=== PATIENT | female | born 1975 | race Caucasian/White ===

== ENCOUNTER 2017-05-18 11:35 | Day surgery (SDC) | payer OTHER ==
[2017-05-18] MEDS ORDERED: CEFAZOLIN 2 GM/50 ML (PMX) 50 ML IVPB ×2 (13:00)
[2017-05-18] MEDS ORDERED: SOD CHLORIDE 0.9% 1,000 ML IV ×2 (13:00)
[2017-05-18 13:01] LABS: ADD MAN DIFF? NO
[2017-05-18 13:04] LABS: WHITE BLOOD COUNT 6.8 10^3/ul (4.8-10.8)
[2017-05-18 13:04] LABS: BASOPHILS % 0.4 % (0.0-2.0); EOSINOPHILS # 0.1 10^3/ul (0.0-0.5); HEMATOCRIT 39.2 % (37.0-47.0); HEMOGLOBIN 13.4 g/dl (12.0-16.0); LYMPHOCYTES # 2.1 10^3/ul (0.8-2.9); LYMPHOCYTES % 30.4 % (15.0-51.0); MEAN CORPUSCULAR HEMOGLOBIN 31.2 pg (29.0-33.0); MEAN CORPUSCULAR HGB CONC 34.2 g/dl (32.0-37.0); MEAN CORPUSCULAR VOLUME 91.2 fl (82.0-101.0); MEAN PLATELET VOLUME 9.6 fl (7.4-10.4); MONOCYTE # 0.4 10^3/ul (0.3-0.9); MONOCYTES % 5.1 % (0.0-11.0); NEUTROPHIL # 4.3 10^3/ul (1.6-7.5); PLATELET COUNT 276 10^3/UL (140-415); RED CELL DISTRIBUTION WIDTH 12.1 % (11.5-14.5)
[2017-05-18 13:21] LABS: ALANINE AMINOTRANSFERASE 28 IU/L (13-69); ALBUMIN 4.4 g/dl (3.3-4.9); ALBUMIN/GLOBULIN RATIO 1.33; ALKALINE PHOSPHATASE 53 IU/L (42-121); ANION GAP 11 (8-16); ASPARTATE AMINO TRANSFERASE 16 IU/L (15-46); BILIRUBIN,INDIRECT 0.5 mg/dl (0-1.1); BILIRUBIN,TOTAL 0.5 mg/dl (0.2-1.3); CARBON DIOXIDE 28 mmol/L (21-31); CHLORIDE 107 mmol/L (97-110); GLUCOSE 97 mg/dl (70-220); TOTAL PROTEIN 7.7 g/dl (6.1-8.1)
[2017-05-18 13:23] LABS: INR 1.01; PROTIME 13.4 Sec (11.9-14.9)
[2017-05-18 13:26] LABS: BLOOD UREA NITROGEN 17 mg/dl (7-20); CALCIUM 9.7 mg/dl (8.4-10.2); CREATININE 0.69 mg/dl (0.44-1.00); POTASSIUM 3.6 mmol/L (3.5-5.1); SODIUM 142 mmol/L (135-144)
[2017-05-18] MEDS ORDERED: MIDAZOLAM 1 MG/ML 2 ML INJ ×2 (15:15)
[2017-05-18] MEDS ORDERED: PHENYLephrine (100 MCG/ML) 5ML SYG ×2 (15:31)
[2017-05-18] MEDS ORDERED: CEFAZOLIN 1 GM INJ ×2 (16:32)
[2017-05-18] MEDS ORDERED: PROPOFOL 20 ML ×2 (16:32)
[2017-05-18] MEDS ORDERED: LIDOCAINE 2% (SDV) 5 ML INJ ×2 (16:32)
[2017-05-18] MEDS ORDERED: ONDANSETRON 4 MG INJ ×2 (16:33)
[2017-05-18] MEDS ORDERED: DIPHENHYDRAMINE 50 MG INJ IV ×2 (17:00)
[2017-05-18] MEDS ORDERED: FENTAnyl 50 MCG/ML VIAL IV ×2 (17:00)
[2017-05-18] MEDS ORDERED: METOCLOPRAMIDE 10 MG INJ IV ×2 (17:00)
[2017-05-18] MEDS ORDERED: HYDROmorphONE (0.2 MG/ML) 10ML SYG IV ×4 (17:00)
[2017-05-18] MEDS ORDERED: MIDAZOLAM 1 MG/ML 2 ML INJ IV ×2 (17:00)
[2017-05-18] MEDS: MEPERIDINE 25 MG INJ IV ×2 (17:03)
[2017-05-18] MEDS: ONDANSETRON 4 MG INJ IV ×2 (18:47)
[2017-05-18] MEDS: HYDROCODONE/APAP (7.5/325) TAB PO ×2 (18:47)
== END 2017-05-18 19:17 | disposition home or self-care (01) ==
LOC: SDS 11:35
DX: D05.12 Intraductal carcinoma in situ of left breast (principal)
CPT/HCPCS: 19301; 80053; 85025; 85610; 85730; 88307